=== PATIENT | female | born 1940 | race Caucasian/White ===

== ENCOUNTER 2020-12-04 16:31 | Inpatient (IN) ==
[2020-12-05] MEDS ORDERED: *HR* Warfarin 5 MG TABLET PO SCH (14:45)
[2020-12-05] MEDS ORDERED: Warfarin perPT PO PRN (15:43)
[2020-12-05] MEDS ORDERED: *HR* Warfarin 5 MG TABLET PO ONE (18:00)
[2020-12-06 05:22] LABS: Basophils % 0.3 %; Eosinophils # 0.3 K/mcL (0.0-0.6); Eosinophils % 2.8 %; Hematocrit 26.6 % (35.3-44.9); Hemoglobin 8.7 g/dL (11.5-15.4); Immature Granulocytes % 0.5 % (0-4); Lymphocytes # 1.5 K/mcL (0.6-4.6); Lymphocytes % 16.1 %; Mean Corpuscular HGB Conc 32.7 g/dL (31.6-35.5); Mean Corpuscular Hemoglobin 29.2 pg (28.0-33.3); Mean Corpuscular Volume 89.3 fL (83.0-100.0); Mean Platelet Volume 10.7 fL (9.4-12.4); Monocytes # 0.7 K/mcL (0.0-1.3); Monocytes % 7.8 %; Neutrophils # 6.7 K/mcL (1.6-8.9); Red Blood Count 2.98 M/mcL (3.82-4.97); Red Cell Distribution Width 13.2 % (11.5-14.5); Segmented Neutrophils % 72.5 %; White Blood Count 9.3 K/mcL (4.3-11.1)
[2020-12-06 05:24] LABS: INR 1.7; Prothrombin Time 19.4 Seconds (9.4-12.1)
[2020-12-06 05:29] LABS: Platelet Count 307 K/mcL (140-400)
[2020-12-06 05:44] LABS: BUN/Creatinine Ratio 22 (6-26); Blood Urea Nitrogen 16 mg/dL (8-23); Calcium 8.6 mg/dL (8.6-10.3); Carbon Dioxide 28 mEq/L (23-29); Chloride 102 mEq/L (98-107); Glucose 117 mg/dL (70-105); Osmolality,Calculated 282 (280-300); Potassium 4.3 mEq/L (3.5-5.1); Sodium 135 mEq/L (136-145); eGFR For African Americans > 60 (> 60); eGFR For Non-African Americans > 60 (> 60)
[2020-12-06] MEDS: *HR* HYDROcodone/Acet 5/325 mg TABLET PO PRN ×2 (08:13→15:05)
[2020-12-06] MEDS: polyethylene glycoL 3350 17 GM POWD.PACK PO SCH (08:14)
[2020-12-06] MEDS: Metoprolol XL (24 HR) Succ 25 MG TAB.ER.24H PO SCH (08:14)
[2020-12-06] MEDS: BIOTIN 1 MG PO SCH (08:14)
[2020-12-06] MEDS: Multivit/Ca/Min/Fe/FA 1 TAB TABLET PO SCH (08:14)
[2020-12-06] MEDS: Cyanocobalamin (B-12) 1,000 MCG TABLET PO SCH (08:14)
[2020-12-06] MEDS: Niacin (24 HR) 500 MG TAB.ER.24H PO SCH (08:14)
[2020-12-06] MEDS: lisinopriL 20 MG TABLET PO SCH (08:17)
[2020-12-06] MEDS: amLODIPine 5 MG TABLET PO SCH (08:17)
[2020-12-06] MEDS ORDERED: *HR* Warfarin 5 MG TABLET PO SCH (14:43)
[2020-12-06] MEDS ORDERED: *HR* Warfarin 5 MG TABLET PO ONE (18:00)
[2020-12-07 06:00] LABS: INR 1.7; Prothrombin Time 19.9 Seconds (9.4-12.1)
[2020-12-07] MEDS: polyethylene glycoL 3350 17 GM POWD.PACK PO SCH (11:09)
[2020-12-07] MEDS: Niacin (24 HR) 500 MG TAB.ER.24H PO SCH (11:10)
[2020-12-07] MEDS: Metoprolol XL (24 HR) Succ 25 MG TAB.ER.24H PO SCH (11:10)
[2020-12-07] MEDS: Multivit/Ca/Min/Fe/FA 1 TAB TABLET PO SCH (11:10)
[2020-12-07] MEDS: amLODIPine 5 MG TABLET PO SCH (11:10)
[2020-12-07] MEDS: BIOTIN 1 MG PO SCH (11:10)
[2020-12-07] MEDS: Cyanocobalamin (B-12) 1,000 MCG TABLET PO SCH (11:10)
[2020-12-07] MEDS: lisinopriL 20 MG TABLET PO SCH (11:11)
[2020-12-07] MEDS: *HR* HYDROcodone/Acet 5/325 mg TABLET PO PRN (17:39)
[2020-12-07] MEDS ORDERED: *HR* Warfarin 5 MG TABLET PO ONE (18:00)
[2020-12-08] MEDS: *HR* HYDROcodone/Acet 5/325 mg TABLET PO PRN ×4 (00:57→20:25)
[2020-12-08] MEDS: Multivit/Ca/Min/Fe/FA 1 TAB TABLET PO SCH (08:25)
[2020-12-08] MEDS: Cyanocobalamin (B-12) 1,000 MCG TABLET PO SCH (08:25)
[2020-12-08] MEDS: Niacin (24 HR) 500 MG TAB.ER.24H PO SCH (08:25)
[2020-12-08] MEDS: BIOTIN 1 MG PO SCH (08:26)
[2020-12-08] MEDS: Metoprolol XL (24 HR) Succ 25 MG TAB.ER.24H PO SCH (08:26)
[2020-12-08] MEDS: polyethylene glycoL 3350 17 GM POWD.PACK PO SCH (08:26)
[2020-12-08] MEDS: lisinopriL 20 MG TABLET PO SCH (08:30)
[2020-12-08] MEDS: amLODIPine 5 MG TABLET PO SCH (08:30)
[2020-12-08 10:56] LABS: INR 1.9; Prothrombin Time 21.8 Seconds (9.4-12.1)
[2020-12-08] MEDS ORDERED: *HR* Warfarin 5 MG TABLET PO ONE (18:00)
[2020-12-09 05:23] LABS: INR 2.2; Prothrombin Time 24.7 Seconds (9.4-12.1)
[2020-12-09] MEDS: *HR* HYDROcodone/Acet 5/325 mg TABLET PO PRN (06:30)
[2020-12-09 07:39] VITALS: BP 148/51
[2020-12-09] MEDS: Niacin (24 HR) 500 MG TAB.ER.24H PO SCH (08:59)
[2020-12-09] MEDS: Cyanocobalamin (B-12) 1,000 MCG TABLET PO SCH (08:59)
[2020-12-09] MEDS: Multivit/Ca/Min/Fe/FA 1 TAB TABLET PO SCH (08:59)
[2020-12-09] MEDS: lisinopriL 20 MG TABLET PO SCH (08:59)
[2020-12-09] MEDS: amLODIPine 5 MG TABLET PO SCH (08:59)
[2020-12-09] MEDS: Metoprolol XL (24 HR) Succ 25 MG TAB.ER.24H PO SCH (08:59)
== END 2020-12-09 10:49 | disposition home or self-care (01) | DRG 560 ==
LOC: INPGRE 12-05 14:09
PROVIDERS: ADMIT Family Medicine; ATTEND Family Medicine